=== PATIENT | female | born 1940 | race Caucasian/White ===

== ENCOUNTER 2016-05-30 10:24 | Inpatient (IN) | payer OTHER ==
[~2016-05-30] VITALS: Ht 152.4 cm; Wt 56.3 kg
[~2016-05-30 10:24] MED LIST: ACTOS15 MG PO; AMARYL4 MG; AMARYL4 MG PO; BUDEPRION SR150 MG; CALCITRIOL0.25 MCG PO; CALCIUM + VITA1 EACH PO; CALCIUM ACETAT667 MG PO; CEFTIN250 MG PO; CIPRO500 MG PO; CREON 241 CAPSULE PO; Ceftin PO; DURAGESIC12 MCG TD; ERGOCALCIF50000 UNIT PO; FERROUS SULFAT325 M2 PO; FLAGYL500 MG PO; Feosol PO; HUMALOG100 UNIT/2 SC; INVanz 1 gm/NaCl 0.9 IV; JANUVIA25 M1 PO; Januvia PO; K-Dur PO; LASIX40 MG PO; LEVEMIR FL100 UNIT/1 SC; LISINOPRIL2.5 MG PO; LYRICA150 MG PO; LYRICA75 MG PO; Lasix PO; Lovenox SC; METFORMIN HCL500 M1 PO; METRONIDAZOLE500 MG PO; MULTIVITAMIN1 EAC2 PO; NESINA12.5 MG PO; NESINA25 MG PO; NOVOLOG PE100 UNITS/ SC; OSENI 25-15 MG1 EACH PO; Oscal 500 w/Vitamin PO; PERCOCET 5/31 TABLET PO; PIOGLITAZONE HC30 MG PO; PROZAC40 MG; PROZAC40 MG PO; PROzac PO; Phenergan PO; Protonix PO; QUESTRAN LIGHT P4 GM PO; RANITIDINE HCL150 M1; TIZANIDINE HCL4 MG PO; TRAMADOL HCL50 MG PO; Theragran PO; VICODIN,LORT1 TABLET; VOLTAREN75 MG; Vicodin,Lortab 5/500 PO; Vicodin,Norco 5/325 PO; Voltaren PO; WELLBUTRIN XL150 MG PO; Wellbutrin SR PO; Wellbutrin XL PO; ZANAFLEX4 MG PO; ZENPEP DR 25,01 EACH PO; ZESTORETIC,P1 TABLE2 PO; ZOCOR20 MG; ZOCOR20 MG PO; Zocor PO
[2016-05-30 11:05] LABS: EOSINOPHIL (%) 0 % (0-5); HEMATOCRIT 24.8 % (36.0-46.0); IMMATURE GRANULOCYTE (%) 0.4 % (0.0-0.7); IMMATURE GRANULOCYTE COUNT 0.1 K/uL; LYMPHOCYTE COUNT 0.5 K/uL (1.0-2.8); MCH 30.9 PG (29.0-34.0); MCHC 33.1 G/DL (30.0-36.0); MCV 93.6 FL (83-99); MEAN PLAT.VOLUME 10.2 uM^3 (9.5-12.4); MONOCYTE (%) 12.1 % (3-12); MONOCYTE COUNT 0.3 K/uL (0-0.8); NEUTROPHIL (%) 65.1 % (45-76); NEUTROPHIL COUNT 1.5 K/uL (1.8-6.4); PLATELET COUNT 62 K/uL (156-360); RBC DIS.WIDTH-CV 18.7 % (11.8-14.6); RBC DIS.WIDTH-SD 61.6 % (39-53); RED BLOOD COUNT 2.65 M/uL (3.80-5.20); WHITE BLOOD COUNT 2.3 K/uL (4.1-10.2)
[2016-05-30 11:07] LABS: CHLORIDE 109 mEq/L (99-109); POTASSIUM 3.6 mEq/L (3.7-5.4); SODIUM 141 mEq/L (136-147)
[2016-05-30 11:09] LABS: GLUCOSE 122 mg/dL (70-99)
[2016-05-30 11:10] LABS: ANION GAP 11 MEQ/L (2-14)
[2016-05-30 11:11] LABS: TOTAL BILIRUBIN 0.3 mg/dL (0.0-1.0)
[2016-05-30 11:12] LABS: ALKALINE PHOSPHATASE 135 IU/L (3-129)
[2016-05-30 11:13] LABS: GFR ESTIMATE (CALCULATED) 29 mL/min/
[2016-05-30 11:14] LABS: UREA NITROGEN (BUN) 18 mg/dL (9-23)
[2016-05-30 12:12] LABS: ADD MIUA? YES; BILIRUBIN NEGATIVE; BLOOD MODERATE; COLOR YELLOW ((YELLOW)); GLUCOSE (STRIP) NEGATIVE; KETONES NEGATIVE; LEUKOCYTES LARGE; NITRITE NEGATIVE; PROTEIN (STRIP) TRACE; SPECIFIC GRAVITY 1.011 (1.000-1.030); UROBILINOGEN 0.2 MG/DL (0.2-1.0)
[2016-05-30 12:31] LABS: EPITHELIAL CELLS 1+; MUCUS 1+; RED BLOOD CELLS 0-5 /HPF (0-5)
[2016-05-30 12:32] LABS: BACTERIA 2+; CASTS NONE SEEN /LPF; CRYSTALS PRESENT; UCUL ADDED? YES; URIC ACID CRYSTALS 1+
[2016-05-30] MEDS ORDERED: BACTRIM,SEPT1 TABLET PO (13:46)
[2016-05-30] MEDS ORDERED: WELLBUTRIN SR150 MG PO (14:08)
[2016-05-30] MEDS ORDERED: LISINOPRIL2.5 MG PO (14:09)
[2016-05-30] MEDS ORDERED: CREON 241 CAPSULE PO ×2 (14:12→14:35)
[2016-05-30] MEDS ORDERED: NOVOLOG PE100 UNITS/ SC (14:17)
[2016-05-30] MEDS ORDERED: FLORASTOR250 MG PO (14:22)
[2016-05-30] MEDS ORDERED: FERROUS SULFAT325 MG PO (14:23)
[2016-05-30] MEDS ORDERED: ATORVASTATIN CA10 MG PO (14:24)
[2016-05-30] MEDS ORDERED: QUESTRAN PACKET4 GM PO (14:25)
[2016-05-30] MEDS ORDERED: VANCOCIN HCL125 MG PO (14:26)
[2016-05-30] MEDS ORDERED: PROVENTIL,2.5 MG/3 M IH (14:28)
[2016-05-30] MEDS ORDERED: LEVAQUIN500 MG PO (14:31)
[2016-05-30] MEDS ORDERED: ZANAFLEX4 M1 PO ×2 (14:33→14:47)
[2016-05-30] MEDS ORDERED: TYLENOL REGULA325 MG PO (14:37)
[2016-05-30] MEDS ORDERED: MILK OF MAGN PO (14:39)
[2016-05-30] MEDS ORDERED: DULCOLAX10 MG PR (14:41)
[2016-05-30] MEDS ORDERED: ENEMA133 M2 PR (14:42)
[2016-05-30] MEDS ORDERED: GUAIFENESIN AC473 ML PO (14:46)
[2016-05-30] MEDS ORDERED: GLUCAGON HCL1 MG IM (14:49)
[2016-05-30 17:08] LABS: POINT-OF-CARE METER ID UU13113702
[2016-05-30 17:35] VITALS: BP 147/71
[2016-05-30 19:51] VITALS: BP 141/74
[2016-05-30 23:19] LABS: C DIFF TOXIN NEGATIVE (NEGATIVE)
[2016-05-30 23:20] LABS: PROBE CHECK PASS; SPECIMEN PROCESSING CONTROL PASS
[2016-05-31] VITALS (13 sets, daily range): BP systolic 132–187; BP diastolic 76–93
[2016-05-31 05:27] LABS: ANION GAP 8 MEQ/L (2-14); CHLORIDE 109 MEQ/L (99-109); GFR ESTIMATE (CALCULATED) 27 mL/min/; IRON 20 MCG/DL (35-150); POTASSIUM 3.2 MEQ/L (3.7-5.4); SAMPLE HEMOLYSIS CHECK 0; SAMPLE ICTERIC CHECK 0; SAMPLE LIPEMIA CHECK 0; SODIUM 143 MEQ/L (136-147); UREA NITROGEN (BUN) 18 mg/dL (9-23)
[2016-05-31 05:28] LABS: GLUCOSE 86 mg/dL (70-99)
[2016-05-31 05:39] LABS: HEMATOLOGY COMMENT 1 REV
[2016-05-31 05:43] LABS: URIC ACID 6.2 mg/dL (3.1-9.2)
[2016-05-31 05:44] LABS: HEMATOCRIT 20.9 % (36.0-46.0); MCH 30.8 PG (29.0-34.0); MCV 93.3 FL (83-99); PLATELET COUNT 50 K/uL (156-360); RBC DIS.WIDTH-CV 18.9 % (11.8-14.6); RBC DIS.WIDTH-SD 64.9 % (39-53); RED BLOOD COUNT 2.24 M/uL (3.80-5.20); WHITE BLOOD COUNT 2.1 K/uL (4.1-10.2)
[2016-05-31 08:48] LABS: INTACT PARATHYROID HORMONE 217 pg/mL (10-69)
[2016-05-31 08:53] LABS: FERRITIN 59 NG/ML (10-291)
[2016-05-31 09:09] LABS: MAGNESIUM 1.5 mg/dl (1.3-2.7)
[2016-05-31 15:00] LABS: UR CREATININE CONCENTRATION 30.7 MG/DL
[2016-06-01 00:13] VITALS: BP 162/93
[2016-06-01 04:30] VITALS: BP 148/95
[2016-06-01 07:36] LABS: ANION GAP 9 MEQ/L (2-14); CHLORIDE 107 MEQ/L (99-109); GFR ESTIMATE (CALCULATED) 33 mL/min/; SAMPLE HEMOLYSIS CHECK 0; SAMPLE ICTERIC CHECK 0; SAMPLE LIPEMIA CHECK 0; SODIUM 141 MEQ/L (136-147); UREA NITROGEN (BUN) 16 mg/dL (9-23)
[2016-06-01 07:37] LABS: ANION GAP 6 MEQ/L (2-14); CHLORIDE 107 MEQ/L (99-109); GFR ESTIMATE (CALCULATED) 31 mL/min/; SAMPLE HEMOLYSIS CHECK 0; SAMPLE ICTERIC CHECK 0; SAMPLE LIPEMIA CHECK 0; SODIUM 141 MEQ/L (136-147); UREA NITROGEN (BUN) 16 mg/dL (9-23)
[2016-06-01 07:38] LABS: GLUCOSE 56 mg/dL (70-99); POTASSIUM 4.2 MEQ/L (3.7-5.4)
[2016-06-01 07:46] LABS: GLUCOSE 56 mg/dL (70-99); POTASSIUM 4.2 MEQ/L (3.7-5.4)
[2016-06-01 07:57] LABS: HEMATOCRIT 31.4 % (36.0-46.0); MCHC 33.1 G/DL (30.0-36.0); MCV 90.5 FL (83-99); RBC DIS.WIDTH-CV 18.1 % (11.8-14.6); WHITE BLOOD COUNT 2.6 K/uL (4.1-10.2)
[2016-06-01 07:58] LABS: RED BLOOD COUNT 3.47 M/uL (3.80-5.20)
[2016-06-01 08:11] LABS: MEAN PLAT.VOLUME 10.3 uM^3 (9.5-12.4); PLATELET COUNT 50 K/uL (156-360)
[2016-06-01 08:12] VITALS: BP 140/73
[2016-06-01 12:05] VITALS: BP 141/75
[2016-06-01 16:09] VITALS: BP 139/72
[2016-06-01 20:27] VITALS: BP 136/71
[2016-06-02 00:23] VITALS: BP 135/70
[2016-06-02 04:19] VITALS: BP 132/71
[2016-06-02 05:32] LABS: HEMATOCRIT 30.8 % (36.0-46.0); MCH 29.9 PG (29.0-34.0); MCHC 33.1 G/DL (30.0-36.0); MCV 90.3 FL (83-99); RBC DIS.WIDTH-CV 17.5 % (11.8-14.6); RBC DIS.WIDTH-SD 57.8 % (39-53); RED BLOOD COUNT 3.41 M/uL (3.80-5.20); WHITE BLOOD COUNT 3.2 K/uL (4.1-10.2)
[2016-06-02 05:39] LABS: ANION GAP 6 MEQ/L (2-14); ANION GAP 7 MEQ/L (2-14); CHLORIDE 107 MEQ/L (99-109); CHLORIDE 108 MEQ/L (99-109); GFR ESTIMATE (CALCULATED) 31 mL/min/; GFR ESTIMATE (CALCULATED) 33 mL/min/; GLUCOSE 48 mg/dL (70-99); POTASSIUM 3.8 MEQ/L (3.7-5.4); SAMPLE HEMOLYSIS CHECK 0; SAMPLE ICTERIC CHECK 0; SAMPLE LIPEMIA CHECK 0; SODIUM 140 MEQ/L (136-147); UREA NITROGEN (BUN) 18 mg/dL (9-23)
[2016-06-02 07:03] LABS: MEAN PLAT.VOLUME 10.9 uM^3 (9.5-12.4); PLATELET COUNT 48 K/uL (156-360)
[2016-06-02 07:52] LABS: POINT-OF-CARE METER ID UU14174225
[2016-06-02 08:36] LABS: POINT-OF-CARE METER ID UU14174225
[2016-06-02 11:09] LABS: POINT-OF-CARE METER ID UU14174225
[2016-06-02 11:16] VITALS: BP 184/88
[2016-06-02 16:13] VITALS: BP 190/74
[2016-06-02 16:13] LABS: POINT-OF-CARE METER ID UU14174225
[2016-06-02 21:07] VITALS: BP 165/81
[2016-06-02 22:25] LABS: POINT-OF-CARE METER ID UU14174225
[2016-06-03] VITALS: BP 150/92
[2016-06-03 04:00] VITALS: BP 164/81
[2016-06-03 07:07] LABS: HEMATOCRIT 30.4 % (36.0-46.0); MCH 30.2 PG (29.0-34.0); MCHC 33.6 G/DL (30.0-36.0); MCV 89.9 FL (83-99); RBC DIS.WIDTH-CV 17.2 % (11.8-14.6); RBC DIS.WIDTH-SD 54.3 % (39-53); RED BLOOD COUNT 3.38 M/uL (3.80-5.20); WHITE BLOOD COUNT 3.2 K/uL (4.1-10.2)
[2016-06-03 07:38] LABS: ANION GAP 9 MEQ/L (2-14); CHLORIDE 105 MEQ/L (99-109); GFR ESTIMATE (CALCULATED) 36 mL/min/; GLUCOSE 63 mg/dL (70-99); POTASSIUM 3.7 MEQ/L (3.7-5.4); SAMPLE HEMOLYSIS CHECK 0; SAMPLE ICTERIC CHECK 0; SAMPLE LIPEMIA CHECK 0; SODIUM 141 MEQ/L (136-147); UREA NITROGEN (BUN) 19 mg/dL (9-23)
[2016-06-03 08:33] VITALS: BP 159/76
[2016-06-03] MEDS ORDERED: LISINOPRIL5 MG PO (08:56)
[2016-06-03] MEDS ORDERED: FERROUS SULFAT325 MG PO (08:56)
[2016-06-03] MEDS ORDERED: SORE THROAT SP177 M1 MM (08:57)
[2016-06-03] MEDS ORDERED: LEVEMIR FL100 UNIT/1 SC (08:59)
[2016-06-03 11:22] VITALS: BP 166/79
== END 2016-06-03 14:32 | DRG 812 ==
LOC: EME → EDBD 10:24 → 5SOUTH 14:19 → EDOF 14:19 → 5SOUTH 17:11
PROVIDERS: Emergency Medicine; Hospitalist; Internal Medicine; Internal Medicine Nephrology; Nurse Practitioner Adult Health; Physician Assistant
PROC: 30233N1 Transfusion of Nonautologous Red Blood Cells into Peripheral Vein, Percutaneous Approach (ICD-10-PCS; principal; 2016-05-31)
DX: D50.9 Iron deficiency anemia, unspecified (principal); K92.1 Melena; D61.818 Other pancytopenia; N17.9 Acute kidney failure, unspecified; I12.9 Hypertensive chronic kidney disease with stage 1 through stage 4 chronic kidney disease, or unspecified chronic kidney disease; N18.4 Chronic kidney disease, stage 4 (severe); E11.22 Type 2 diabetes mellitus with diabetic chronic kidney disease; D37.8 Neoplasm of uncertain behavior of other specified digestive organs; E11.65 Type 2 diabetes mellitus with hyperglycemia; E11.43 Type 2 diabetes mellitus with diabetic autonomic (poly)neuropathy; N25.81 Secondary hyperparathyroidism of renal origin; S81.811A Laceration without foreign body, right lower leg, initial encounter; S81.812A Laceration without foreign body, left lower leg, initial encounter; S51.811A Laceration without foreign body of right forearm, initial encounter; W19.XXXA Unspecified fall, initial encounter; Y92.129 Unspecified place in nursing home as the place of occurrence of the external cause; Y99.8 Other external cause status; E55.9 Vitamin D deficiency, unspecified; J02.9 Acute pharyngitis, unspecified; R19.7 Diarrhea, unspecified; J44.9 Chronic obstructive pulmonary disease, unspecified; F32.9 Major depressive disorder, single episode, unspecified; E04.1 Nontoxic single thyroid nodule; K80.20 Calculus of gallbladder without cholecystitis without obstruction; I70.1 Atherosclerosis of renal artery; I87.2 Venous insufficiency (chronic) (peripheral)
CPT/HCPCS: 71010; 80048; 80048 91; 80053; 80069; 81003; 82306; 82570; 82728; 82948; 83540; 83605; 83735; 83970; 84100; 84156; 84466; 84550; 85025; 85027; 86850; 86900; 86901; 86920; 87040; 87070; 87086; 87205; 87493; 99281; 99285; J0692; J1756; J1815; J3475; J7030; J7050; P9016